=== PATIENT | male | born 1965 | race Caucasian/White ===

== ENCOUNTER 2024-02-24 04:23 | Emergency (ER) | payer OTHER ==
[~2024-02-24] VITALS: Ht 165.1 cm; Wt 69.0 kg
[2024-02-24 04:26] VITALS: O2SAT 100
[2024-02-24] MEDS: ONDANSETRON HCL 4MG/2ML INJ IV ONE (04:48)
[2024-02-24 05:04] LABS: BASOPHILS % 0.6 % (0.0-2.0); EOSINOPHILS % 1.9 % (0.0-5.0); HEMATOCRIT. 49.2 % (42.0-52.0); HEMOGLOBIN. 16.5 g/dL (14.0-18.0); LYMPHOCYTES % 19.3 % (20.0-50.0); MEAN CORPUSCULAR HEMOGLOBIN 32.5 pg (28.0-32.0); MEAN CORPUSCULAR HGB CONC 33.5 g/dL (31.0-37.0); MEAN CORPUSCULAR VOLUME 97.2 fL (80.0-94.0); MONOCYTES % 7.3 % (2.0-8.0); NEUTROPHILS % 70.9 % (40.0-76.0); RED BLOOD CELL COUNT 5.06 mill/uL (4.7-6.1); RED CELL DISTRIBUTION WIDTH 13.3 % (11.6-14.6); WHITE BLOOD COUNT 6.7 x1000/uL (4.5-11.0)
[2024-02-24 05:09] LABS: CHLORIDE 108 mEq/L (98-107); SODIUM 142 mEq/L (136-145)
[2024-02-24 05:11] LABS: CALCIUM 9.6 mg/dL (8.7-10.4); CARBON DIOXIDE 28 mEq/L (21-32)
[2024-02-24 05:14] LABS: DIFFERENTIAL COMMENT 1
[2024-02-24 05:16] LABS: CREATININE 0.8 mg/dL (0.6-1.3)
[2024-02-24 05:17] LABS: GLUCOSE 113 mg/dL (70-105); UREA NITROGEN BLOOD 11 mg/dL (9-23)
[2024-02-24 05:18] LABS: ALANINE AMINOTRANSFERASE 42 IU/L (10-49); ALBUMIN 4.5 g/dL (3.2-4.8); ASPARTATE AMINOTRANSFERASE 32 IU/L (<34)
[2024-02-24 05:19] LABS: BILIRUBIN DIRECT 0.3 mg/dL (<=3.0); BILIRUBIN TOTAL 0.7 mg/dL (0.1-1.0); PROTEIN TOTAL 7.8 g/dL (6.0-8.3)
[2024-02-24] MEDS: SODIUM CHLORIDE 0.9% 1,000 ML IV ONE (05:49)
[2024-02-24] MEDS: PANTOPRAZOLE SODIUM 40 MG/VIAL IV ONE (06:11)
[2024-02-24] MEDS: IOHEXOL-300 100 ML BOTTLE ONE (07:11)
[2024-02-24 07:33] VITALS: TEMP 36.94740
[2024-02-24 09:00] VITALS: BP 120/76; PULSE 79; RESP 12; O2SAT 79
[2024-02-24 09:13] LABS: ADD RBC MORPHOLOGY YES; MEAN PLATELET VOLUME 12.3 fl (7.4-10.4); PLATELET 124 x1000/uL (130-400)
[2024-02-24 09:14] LABS: PLATELET ESTIMATE NORMAL
== END 2024-02-24 09:03 ==
LOC: ER 04:40
DX: K44.9 Diaphragmatic hernia without obstruction or gangrene (principal); Z02.89 Encounter for other administrative examinations
CPT/HCPCS: 80076; 80048; 80320; 83690; 85025; 36415; 74177; 96365; 99285; Q9967; J2470; J7030; G0480